=== PATIENT | male | born 1960 | race Caucasian/White ===

== ENCOUNTER 2024-07-07 08:03 | Day surgery (SDC) | payer BC ==
[~2024-07-07] VITALS: Ht 173 cm; Wt 96.8 kg
[~2024-07-07 08:03] MED LIST: ASPI81CH PO; CHOL10002 PO; Celebrex200 MG PO; Crestor40 MG; METO25ER PO; NS 500 ML IV SCH; OMEP40CA12 PO; OXYACE5T PO; [UNRECOGNIZED DRUG - REMARK]
[2024-07-07] MEDS ORDERED: NS 500 ML IV ONE (09:06)
[2024-07-07 09:27] VITALS: BP 151/83
--- NOTE | 2024-07-07 09:38 | NUR ---
History, Chart, Medications and Allergies reviewed before start of procedure. Patient up to Ambulate independently. Gait steady. Pre-Op teaching done. Pt verbalizes understanding. Patient confirms NPO status and agrees with scheduled surgery. Patient States Post-Procedure ride home has been arranged.
[2024-07-07] MEDS ORDERED: propofoL 40 ML IV ONE (10:10)
--- NOTE | 2024-07-07 10:18 | NUR ---
07/07/24 1018 Andrew Guevara History, Chart, Medications and Allergies reviewed before start of procedure.MONITOR INTACT WITH CONTINUOUS PULSE OXIMETRY, CONTINUOUS END TITAL CO2, AND INTERMITTENT BLOOD PRESSURE.3-LEAD EKG REVIEWED WITH PHYSICIAN PRIOR TO START OF PROCEDURE.O2 VIA POM INTACT THROUGHOUT SEDATION/PROCEDURE.See Anesthesia record.
[2024-07-07 10:47] VITALS: BP 121/85
--- NOTE | 2024-07-07 11:09 | NUR ---
Discharge instructions reviewed with patient. Patient verbalizes understanding. Copy given to patient to take home. Patient up to Ambulate independently. Gait steady. Discharged via wheelchair to private car for ride home.
== END 2024-07-07 11:10 | disposition home or self-care (01) ==
LOC: ORSCMMR 08:03 → ORD 09:30 → ORSCMMR 09:30
PROVIDERS: Internal Medicine Gastroenterology
PROC: 0DBM8ZX Excision of Descending Colon, Via Natural or Artificial Opening Endoscopic, Diagnostic (ICD-10-PCS; principal; 2024-07-07 09:30)
PROC: 0DBN8ZX Excision of Sigmoid Colon, Via Natural or Artificial Opening Endoscopic, Diagnostic (ICD-10-PCS; principal; 2024-07-07 09:30)
DX: Z12.11 Encounter for screening for malignant neoplasm of colon (principal); D12.5 Benign neoplasm of sigmoid colon; K63.5 Polyp of colon; I10 Essential (primary) hypertension; E66.9 Obesity, unspecified; Z68.32 Body mass index [BMI] 32.0-32.9, adult; Z79.899 Other long term (current) drug therapy
CPT/HCPCS: 88305; J2704; J7040